=== PATIENT | female | born 1985 | race Two or more races ===

== ENCOUNTER 2024-08-16 07:34 | Emergency (ER) | payer MEDICAID, SELFPAY ==
[2024-08-16 07:35] VITALS: BMI 37.8
[2024-08-16 07:39] VITALS: BP 146/82; PULSE 78; RESP 17; TEMP 37.1; O2SAT 99
--- NOTE | 2024-08-16 07:43 | PD.EDABDPN ---
ED Abdominal Pain RME/HPI General Chief Complaint: Abdominal Pain Stated complaint: ABD/ LOWER BACK PAIN Time seen by provider: 08/16/24 07:37 Arrival date/time: 08/16/24 07:34 39-year-old female with no known medical history presents to the emergency room with a chief complaint of epigastric pain, bilateral flank pain, and dysuria x 5 days Source: patient Mode of arrival: ambulatory Limitations: no limitations Related Data Previous Rx's ?Medication ?Instructions ?Recorded cephalexin 500 mg capsule 500 mg PO BID #20 caps 12/19/18 prednisone 50 mg tablet 50 mg PO QDAY #5 tabs 11/09/21 albuterol sulfate 90 mcg/actuation 2 puff inhalation Q4H #6.7 grams 11/16/22 aerosol inhaler (Proventil HFA) loratadine 10 mg capsule 10 mg PO QDAY PRN allergy symptoms 11/16/22 #30 caps montelukast 10 mg tablet 10 mg PO QDAY #30 tabs 11/16/22 (Singulair) promethazine-DM 6.25 mg-15 mg/5 mL 5 ml PO Q6H #240 mL 11/16/22 oral syrup erythromycin 5 mg/gram (0.5 %) eye 0.5 inch ophthalmic (eye) QID #3.5 06/20/23 ointment grams levocetirizine 5 mg tablet (Xyzal) 2.5 mg (1/2 x 5 mg) PO BID #20 tabs 10/26/23 Allergies Allergy/AdvReac Type Severity Reaction Status Date / Time Charlton And Derivatives Allergy Severe Anaphylaxis Verified 06/19/23 21:46 Review of Systems Review of Systems Systems Reviewed: All systems reviewed, normal except as documented Constitutional Constitutional: Reports system reviewed and no additional complaints, except as documented, Denies fatigue, Denies fever(s), Denies headache(s) and Denies weakness Eyes Eyes: Reports system reviewed and no additional complaints, except as documented, Denies blurry vision and Denies change in vision ENT Ears, Nose, Mouth, and Throat: Reports system reviewed and no additional complaints, except as documented, Denies otalgia, Denies headache(s), Denies nasal congestion, Denies throat swelling and Denies vertigo Cardiovascular Cardiovascular: Reports system reviewed and no additional complaints, except as documented, Denies chest pain, Denies dyspnea and Denies dyspnea on exertion Respiratory Respiratory: Reports system reviewed and no additional complaints, except as documented, Denies chest congestion, Denies cough, Denies dyspnea, Denies dyspnea on exertion and Denies wheezing Gastrointestinal Gastrointestinal: Reports system reviewed and no additional complaints, except as documented, Reports abdominal pain, Reports cramping, Reports nausea and Reports vomiting Genitourinary Genitourinary: Reports system reviewed and no additional complaints, except as documented Musculoskeletal Musculoskeletal: Reports system reviewed and no additional complaints, except as documented and Denies back pain Integumentary/Breasts Skin/Breast: Reports system reviewed and no additional complaints, except as documented and Denies wounds Neurologic Neurologic: Reports system reviewed and no additional complaints, except as documented, Denies confusion, Denies headache(s), Denies lack of coordination, Denies vertigo and Denies weakness Psychiatric Psychiatric: Reports system reviewed and no additional complaints, except as documented, Denies anxiety, Denies confusion, Denies depression, Denies paranoia, Denies suicidal ideation and Denies tactile hallucinations Endocrine Endocrine: Reports system reviewed and no additional complaints, except as documented and Denies fatigue Hematologic/Lymphatic Hematologic/Lymphatic: Reports system reviewed and no additional complaints, except as documented and Denies lymphadenopathy Allergic/Immunologic Allergic/Immunologic: Reports system reviewed and no additional complaints, except as documented, Denies throat swelling, Denies urticaria and Denies wheezing Past Medical History Past Medical History CARDIAC: Negative Congestive Heart Failure RESPIRATORY: Negative Chronic Obstructive Pulmonary Disease (COPD) or Asthma GASTROINTESTINAL: Positive Gall Bladder Disease (REMOVED) GENITOURINARY: Negative Renal Disease ENDOCRINE: Negative Diabetes Mellitus Type 1 or Diabetes Mellitus Type 2 Social History SMOKING STATUS: Never smoker SUBSTANCE USE: does not use ED Exam General Limitations: Present no limitations General appearance: Present alert and in no apparent distress Head Head exam: Present atraumatic Eye Eye exam: Present normal appearance, PERRL and EOMI ENT ENT exam: Present normal exam, normal oropharynx and mucous membranes moist Neck Neck exam: Present normal inspection, full ROM and trachea midline Chest Chest inspection: Present normal inspection and symmetric chest wall rise Respiratory Respiratory exam: Present normal lung sounds bilaterally Cardiovascular Cardiovascular exam: Present regular rate, normal rhythm and normal heart sounds Abdominal Exam Abdominal exam: Present soft, tenderness, normal bowel sounds and tenderness at McBurney's Point Abdominal tenderness: Present epigastrium and moderate Extremities Exam Extremities exam: Present normal inspection and full ROM Back Exam Back exam: Present normal inspection and full ROM Neurological Exam Neurological exam: Present alert, oriented X3 and CN II-XII intact Psychiatric Psychiatric exam: Present normal affect and normal mood Skin Skin exam: Present warm, dry, intact and normal color Course Quality Measures none Orders Category Date Time Status CT abdomen pelvis wo con Stat Exams 08/16/24 07:44 Stop Req CBC Stat Lab 08/16/24 07:57 Completed CMP [Comprehensive Metabolic Panel] Stat Lab 08/16/24 07:57 Completed HCG Qualitative,Urine Stat Lab 08/16/24 08:03 Completed Lipase Stat Lab 08/16/24 07:57 Completed UA [Urinalysis] Stat Lab 08/16/24 08:03 Completed Urine Culture Stat Lab 08/16/24 08:03 Received Ondansetron Odt [Zofran Odt] Med 08/16/24 07:43 Discontinued 4 mg PO X1 ONE mg Hyd/Al Hyd/Betsy Susp [Maalox Susp] Med 08/16/24 07:43 Discontinued 30 ml PO X1 ONE Vital Signs Vital signs: Vital Signs Temperature 98.7 F 08/16/24 07:39 Pulse Rate 78 08/16/24 07:39 Respiratory Rate 17 08/16/24 07:39 Blood Pressure 146/82 H 08/16/24 07:39 Pulse Oximetry (%) 99 08/16/24 07:39 Oxygen Delivery Method Room Air 08/16/24 07:39 O2 saturation 99% within normal limits Abdominal Pain MDM MDM Narrative MDM Narrative:: 39-year-old female with no known medical history presents to the emergency room with a chief complaint of epigastric pain, bilateral flank pain, and dysuria x 5 days Patient is hemodynamically stable and in no apparent distress Physical examination shows 6 out of 10 epigastric abdominal pain with palpation. There is no right upper quadrant abdominal tenderness. Patient has some mild right lower quadrant abdominal tenderness but is no tenderness at McBurney's point. There is no rebound tenderness. CBC CMP showed no leukocytosis. The patient is afebrile and not vomiting. Fisher score was low for appendicitis. Patient's hCG test was positive. I reevaluated patient 1 hour later and there is no right lower quadrant abdominal tenderness. Patient was educated return if the pain and tenderness gets worse Patient was discharged and educated to follow-up with primary care provider in the next 24 to 48 hours and return to the emergency room for any evidence of worsening signs or symptoms Patient data External records reviewed:: [facility] previous records Clinical information provided by:: patient Social determinants that could affect healthcare access:: none Patient has the following chronic illnesses:: No chronic illness How is presenting disease/condition affected by chronic disease/condition?: no chronic disease Evaluation data The following diagnostics were reviewed and interpreted by me:: lab results and radiology exam(s) Lab and/or radiology exams considered but not ordered:: Labs and radiology exams considered and ordered Interpretation Summary: CT abdomen and pelvis-not completed because patient was Medications / Prescriptions Medications or Prescriptions considered but not ordered:: Medication given Medication administrations:: Medication Administration History Discontinued Medications Al Hydrox/Mg Hydrox/Simethicone (Mg Hyd/Al Hyd/Betsy (Maalox Reg) Susp 30 Ml Udc) 30 ml PO X1 ONE Stop: 08/16/24 07:44 Last Admin: 08/16/24 07:54 Dose: 30 ml Documented By: [facility] Ondansetron HCl (Ondansetron Odt 4 Mg Tabrap) 4 mg PO X1 ONE; Protocol Stop: 08/16/24 07:44 Last Admin: 08/16/24 07:54 Dose: 4 mg Documented By: [facility] Medication given Consultations Consultation(s) initiated? (list below): No Diagnosis Differential diagnosis abdominal pain: abdominal pain, acute appendicitis, calculus of kidney, constipation, gastroenteritis, small bowel obstruction and other Most likely diagnosis given after review of the tests above:: Gastritis, Admission Indicated Admission indicated?: not indicated Admission Request Was there a request for admission?: No Disposition Plan Disposition Plan: Discharge Discharge Attestation Discharge Attestation: The patient and all family members were given an opportunity to ask questions and understood the discharge instructions. Discharge instructions specifically effects, indications for sooner follow up or return to the emergency department, and the expected course of current diagnosis. Patient condition: Stable Discharge Plan Plan Patient Disposition: HOME (Self Care) Discharge Disposition comment: Stable Prescriptions/Referrals Prescriptions/Med Rec: No Action cephalexin 500 mg capsule 500 mg PO BID Qty: 20 0RF prednisone 50 mg tablet 50 mg PO QDAY Qty: 5 0RF montelukast [Singulair] 10 mg tablet 10 mg PO QDAY Qty: 30 0RF albuterol sulfate [Proventil HFA] 90 mcg/actuation HFA aerosol inhaler 2 puff inhalation Q4H Qty: 6.7 0RF loratadine 10 mg capsule 10 mg PO QDAY PRN (Reason: allergy symptoms) Qty: 30 0RF promethazine-DM 6.25-15 mg/5 mL syrup 5 ml PO Q6H Qty: 240 0RF erythromycin 5 mg/gram (0.5 %) ointment 0.5 inch ophthalmic (eye) QID Qty: 3.5 0RF levocetirizine [Xyzal] 5 mg tablet 2.5 mg PO BID Qty: 20 0RF Referrals: No Primary/Family,Physician [Primary Care Provider] - In 1 week Problem List Clinical Impression: , Gastritis Patient/Caregiver Discharge Instructions Education Materials: ED Gastritis (Adult) Additional Instructions: Consulte con louis m?dico de cabecera en las pr?ximas 24 a 48 horas. Louis prueba de embarazo echo positiva. Shanel an?lisis de susan y orina dieron negativo para cualquier hallazgo chung. ?Shanel s?ntomas son compatibles con gastritis? Ante cualquier evidencia de empeoramiento de los signos o s?ntomas, acuda a urgencias de inmediato. Print Language: Macanese Stand Alone Forms: Nancy Award Info., Patient Portal Info Letter PA/WIRE BOUND BOX MACHINE OPERATOR Supervising Physician PA/WIRE BOUND BOX MACHINE OPERATOR Supervising Physician: Dr. Schmidt
[2024-08-16] MEDS: ONDANSETRON ODT 4 MG TABRAP PO (07:54)
[2024-08-16] MEDS: MG HYD/AL HYD/SIME (Maalox Reg) SUSP 30 ML UDC PO (07:54)
[2024-08-16 08:11] LABS: Collection Type, Urine Clean Catch
[2024-08-16 08:28] LABS: Basophils % (Auto) 0 % (0-2.5); Eosinophils % (Auto) 0 % (0-10); Hematocrit 38.1 % (36.0-46.0); Hemoglobin 13.5 g/dL (12.0-16.0); Immature Granulocytes % (Auto) 0 % (0-0); Immature Granulocytes Auto 0.01 Thou/mm3 (0.00-0.00); Lymphocytes # (Auto) 2.2 Thou/mm3 (1.0-4.8); Lymphocytes % (Auto) 28 % (10-50); Mean Corpuscular HGB Conc 35.4 g/dl (31.0-37.0); Mean Corpuscular Volume 88 fL (80-100); Monocytes # (Auto) 0.4 Thou/mm3 (0.0-0.8); Monocytes % (Auto) 6 % (0-12); Neutrophils % (Auto) 65 % (37-80); Nucleated Red Blood Cell % 0 /100 WBC (0); Platelet Count 267 Thou/mm3 (140-440); RDW Standard Deviation 39.8 fL (36.4-46.3); Red Blood Count 4.35 Miln/mm3 (4.00-5.20); White Blood Count 7.6 Thou/mm3 (3.6-11.0)
[2024-08-16 08:32] LABS: Anion Gap 12 (7-16); BUN/Creatinine Ratio 13 Ratio (12-20); Blood Urea Nitrogen 9 mg/dL (9-23); Calcium 9.1 mg/dL (8.3-10.6); Carbon Dioxide 23.9 mMol/L (20.0-31.0); Chloride 105 mMol/L (98-107); Creatinine (Component) 0.7 mg/dL (0.6-1.3); Estimated Creatinine Clearance 123.9 mL/min (>60); Glucose 87 mg/dL (74-106); Osmolality,Calculated 278 (275-295); Potassium 3.8 mMol/L (3.4-5.1); Sodium 141 mMol/L (136-145); eGFR > 60 See Note
[2024-08-16 08:33] LABS: Alanine Aminotransferase 13 U/L (10-49); Albumin, Serum 4.4 gm/dL (3.5-5.0); Albumin/Globulin Ratio 1.8 (1.2-2.2); Alkaline Phosphatase 59 U/L (46-116); Bilirubin,Total 0.7 mg/dL (0.3-1.2); Calcium (Corrected) 9.1 mg/dL (8.5-10.1); Globulin 2.4 gm/dL (2.3-3.5); Lipase 31 U/L (12-53); Total Protein 6.8 gm/dL (5.7-8.2)
[2024-08-16 09:02] LABS: Bilirubin,Urine Negative (Negative); Blood,Urine Negative (Negative); Clarity,Urine Clear (Clear/Hazy); Color,Urine Yellow (Lt Yel-Yel); Glucose, Urine Negative (Negative); Ketones,Urine Negative (Negative); Leukocyte Esterase,Urine Negative (Negative); Nitrite,Urine Negative (Negative); PH,Urine 6.5 (5.0-7.0); Protein,Urine Negative (Neg - Trace); RBC,Urine 2 /hpf (0-3); Specific Gravity,Urine 1.024 (1.001-1.035); Squamous Epithelial Cell,Urine 4 /hpf (0-5); Urobilinogen,Urine Negative mg/dL (0.0-1.0); WBC,Urine 2 /hpf (0-5)
[2024-08-16 09:08] LABS: HCG Qualitative,Urine Positive
== END 2024-08-16 09:42 | disposition home or self-care (01) ==
PROVIDERS: Nurse Practitioner Family; Emergency Provider Family Medicine
DX: O99.619 Diseases of the digestive system complicating pregnancy, unspecified trimester (principal); K29.70 Gastritis, unspecified, without bleeding; Z3A.00 Weeks of gestation of pregnancy not specified
CPT/HCPCS: 36415; 80053; 81001; 81025; 83690; 85025; 87086; 99283; Q0162; A9270

== ENCOUNTER 2024-10-10 13:07 | Emergency (ER) | payer MEDICAID, SELFPAY ==
[2024-10-10 13:09] VITALS: BMI 36.6
[2024-10-10 13:19] VITALS: BP 143/82; PULSE 90; RESP 18; TEMP 36.9; O2SAT 98
--- NOTE | 2024-10-10 13:30 | XR_ITS ---
Examination: Complete OB ultrasound, less than 14 weeks, transabdominal Date and time of exam: October 10, 2024, 1341 hrs. Indications: Early by history with right flank pain today. Technique: Obstetrical ultrasound images less than 14 weeks performed via transabdominal imaging Findings: A normal shaped single intrauterine gestation is present in the uterus. CRL 8.7 cm corresponds to 14 weeks 4 days gestational age. Cardiac motion 138 BPM. Ultrasonographic survey of visible and placental structures unremarkable. Amniotic fluid volume appears appropriate for this estimated gestational age. Right ovary 4.6 cm arterial flow 13 mm follicular cyst Left ovary 2.4 cm arterial flow Impression: Viable intrauterine gestation 14 weeks 4 days.
--- NOTE | 2024-10-10 13:37 | EDNOTE_ITS ---
ED OB Contraction Preg RMI/HPI General Chief complaint: General Adult/Misc Complain Stated complaint: PAIN R) GROIN, PREG 13WKS Time Seen by Provider: 10/10/24 13:31 Source: patient Arrival date/time: 10/10/24 13:07 39-year-old female with no known medical history presents to the emergency room with a chief complaint of right groin pain x 1 day. Patient is currently 13 weeks . She is a . Patient denies any vaginal bleeding or dysuria. Mode of arrival: ambulatory Limitations: no limitations Related Data Previous Rx's ?Medication ?Instructions ?Recorded cephalexin 500 mg capsule 500 mg PO BID #20 caps 12/19 prednisone 50 mg tablet 50 mg PO QDAY #5 tabs albuterol sulfate 90 mcg/actuation 2 puff inhalation Q 4H #6.7 grams 11/16/22 aerosol inhaler (Proventil HFA) loratadine 10 mg capsule 10 mg PO QDAY PRN allergy sy mptoms 11/16/22 #30 caps montelukast 10 mg tablet 10 mg PO QDAY #30 tabs 11/16 (Singulair) promethazine-DM 6.25 mg-15 mg/5 mL 5 ml PO Q6H #240 mL 11/16/22 oral syrup erythromycin 5 mg/gram (0.5 %) eye 0.5 inch ophthalmic (eye) QID #3.5 06/20/23 ointment grams levocetirizine 5 mg tablet (Xyzal) 2.5 mg (1/2 x 5 mg) PO BID #20 tabs 10/26/23 Allergies Allergy/AdvReac Type Severity Reaction Status Date / Time No Known Allergies Allergy Verified 10/10/24 13:14 Review of Systems Review of Systems Systems Reviewed: All systems reviewed, normal except as documented Constitutional Constitutional: Reports system reviewed and no additional complaints, except as documented, Denies fatigue, Denies fever(s), Denies headache(s) and Denies weakness Eyes Eyes: Reports system reviewed and no additional complaints, except as documented, Denies blurry vision and Denies change in vision ENT Ears, Nose, Mouth, and Throat: Reports system reviewed and no additional complaints, except as documented, Denies otalgia, Denies headache(s), Denies nasal congestion, Denies throat swelling and Denies vertigo Cardiovascular Cardiovascular: Reports system reviewed and no additional complaints, except as documented, Denies chest pain, Denies dyspnea and Denies dyspnea on exertion Respiratory Respiratory: Reports system reviewed and no additional complaints, except as documented, Denies chest congestion, Denies cough, Denies dyspnea, Denies dyspnea on exertion and Denies wheezing Gastrointestinal Gastrointestinal: Reports system reviewed and no additional complaints, except as documented, Denies abdominal pain, Denies cramping, Denies nausea and Denies vomiting Genitourinary Genitourinary: Reports system reviewed and no additional complaints, except as documented Musculoskeletal Musculoskeletal: Reports system reviewed and no additional complaints, except as documented and Denies back pain Integumentary/Breasts Skin/Breast: Reports system reviewed and no additional complaints, except as documented and Denies wounds Neurologic Neurologic: Reports system reviewed and no additional complaints, except as documented, Denies confusion, Denies headache(s), Denies lack of coordination, Denies vertigo and Denies weakness Psychiatric Psychiatric: Reports system reviewed and no additional complaints, except as documented, Denies anxiety, Denies confusion, Denies depression, Denies paranoia, Denies suicidal ideation and Denies tactile hallucinations Endocrine Endocrine: Reports system reviewed and no additional complaints, except as documented and Denies fatigue Hematologic/Lymphatic Hematologic/Lymphatic: Reports system reviewed and no additional complaints, except as documented and Denies lymphadenopathy Allergic/Immunologic Allergic/Immunologic: Reports system reviewed and no additional complaints, except as documented, Denies throat swelling, Denies urticaria and Denies wheezing Past Medical History Past Medical History CARDIAC: Negative Congestive Heart Failure RESPIRATORY: Negative Chronic Obstructive Pulmonary Disease (COPD) or Asthma GASTROINTESTINAL: Positive Gall Bladder Disease (REMOVED) GENITOURINARY: Negative Renal Disease ENDOCRINE: Negative Diabetes Mellitus Type 1 or Diabetes Mellitus Type 2 Social History SMOKING STATUS: Never smoker SUBSTANCE USE: does not use ED Exam General Limitations: Present no limitations General appearance: Present alert and in no apparent distress Head Head exam: Present atraumatic Eye Eye exam: Present normal appearance, PERRL and EOMI ENT ENT exam: Present normal exam, normal oropharynx and mucous membranes moist Neck Neck exam: Present normal inspection, full ROM and trachea midline Chest Chest inspection: Present normal inspection and symmetric chest wall rise Respiratory Respiratory exam: Present normal lung sounds bilaterally Cardiovascular Cardiovascular exam: Present regular rate, normal rhythm and normal heart sounds Abdominal Exam Abdominal exam: Present soft, tenderness and normal bowel sounds Abdominal tenderness: Present RLQ and mild Extremities Exam Extremities exam: Present normal inspection and full ROM Back Exam Back exam: Present normal inspection and full ROM Neurological Exam Neurological exam: Present alert, oriented X3 and CN II-XII intact Psychiatric Psychiatric exam: Present normal affect and normal mood Skin Skin exam: Present warm, dry, intact and normal color Course Quality Measures none Orders Category Date Time Status US OB <= 14 weeks fetus Stat Exams 10/10/24 13:30 Completed ABO/RH Type Stat Lab 10/10/24 14:15 Results Beta HCG,Quantitative Stat Lab 10/10/24 14:15 Completed CBC Stat Lab 10/10/24 14:15 Completed CMP [Comprehensive Metabolic Panel] Stat Lab 10/10/24 14:15 Completed UA [Urinalysis] Stat Lab 10/10/24 13:55 Completed Vital Signs Vital signs: Vital Signs Temperature 98.4 F 10/10/24 13:19 Pulse Rate 90 10/10/24 13:19 Respiratory Rate 18 10/10/24 13:19 Blood Pressure 143/82 H 10/10/24 13:19 Pulse Oximetry (%) 98 10/10/24 13:19 Oxygen Delivery Method Room Air 10/10/24 13:19 O2 saturation 98% within normal limits OB/Uterine Contractions MDM Narrative MDM Narrative:: 39-year-old female with no known medical history presents to the emergency room with a chief complaint of right groin pain x 1 day. Patient is currently 13 weeks . She is a . Patient denies any vaginal bleeding or dysuria. Patient is hemodynamically stable and in no apparent distress Physical examination shows tenderness and pain to the patient's right lower quadrant groin area. Ultrasound OB was completed and shows a viable intrauterine gestation at 14 weeks and 4 days. heart tones are 138 bpm and hCG levels are 34,188. There is arterial flow to the left and right ovary. Patient was discharged and educated to follow-up with primary care provider in the next 24 to 48 hours and return to the emergency room for any evidence of worsening signs or symptoms Patient data External records reviewed:: [facility] [place] previous records Clinical information provided by:: patient Social determinants that could affect healthcare access:: none Patient has the following chronic illnesses:: No chronic illness How is presenting disease/condition affected by chronic disease/condition?: no chronic disease Evaluation data The following diagnostics were reviewed and interpreted by me:: lab results and radiology exam(s) Lab and/or radiology exams considered but not ordered:: Labs and radiology exams considered and ordered Interpretation Summary: OB ultrasound-Findings: A normal shaped single intrauterine gestation is present in the uterus. CRL 8.7 cm corresponds to 14 weeks 4 days gestational age. Cardiac motion 138 BPM. Ultrasonographic survey of visible and placental structures unremarkable. Amniotic fluid volume appears appropriate for this estimated gestational age. Right ovary 4.6 cm arterial flow 13 mm follicular cyst Left ovary 2.4 cm arterial flow Impression: Viable intrauterine gestation 14 weeks 4 days. Medications / Prescriptions Medications or Prescriptions considered but not ordered:: No medication given Medication administrations:: No medication given Consultations Consultation(s) initiated? (list below): No Diagnosis OB Contractions Differential Diagnosis: other (Ectopic /threatened /ovarian cyst/pelvic pain) Most likely diagnosis given after review of the tests above:: Pelvic pain Admission Indicated Admission indicated?: not indicated Explain why admission is indicated or not indicated:: N/A Admission Request Was there a request for admission?: No Disposition Plan Disposition Plan: Discharge Discharge Attestation Discharge Attestation: The patient and all family members were given an opportunity to ask questions and understood the discharge instructions. Discharge instructions specifically effects, indications for sooner follow up or return to the emergency department, and the expected course of current diagnosis. Patient condition: Stable Discharge Plan Plan Patient Disposition: HOME (Self Care) Discharge Disposition comment: Stable Prescriptions/Referrals Prescriptions/Med Rec: No Action cephalexin 500 mg capsule 500 mg PO BID Qty: 20 0RF prednisone 50 mg tablet 50 mg PO QDAY Qty: 5 0RF montelukast [Singulair] 10 mg tablet 10 mg PO QDAY Qty: 30 0RF albuterol sulfate [Proventil HFA] 90 mcg/actuation HFA aerosol inhaler 2 puff inhalation Q4H Qty: 6.7 0RF loratadine 10 mg capsule 10 mg PO QDAY PRN (Reason: allergy symptoms) Qty: 30 0RF promethazine-DM 6.25-15 mg/5 mL syrup 5 ml PO Q6H Qty: 240 0RF erythromycin 5 mg/gram (0.5 %) ointment 0.5 inch ophthalmic (eye) QID Qty: 3.5 0RF levocetirizine [Xyzal] 5 mg tablet 2.5 mg PO BID Qty: 20 0RF Referrals: Hao Buck MD [Primary Care Provider] - In 1 week Problem List Clinical Impression: Pelvic pain affecting , Follicular cyst of right ovary Patient/Caregiver Discharge Instructions Education Materials: ED Abdominal Pain, Early , ED Ovarian Cyst Additional Instructions: Por favor, acuda a jero yissel de seguimiento con louis m?dico de cabecera en las pr?ximas 24 a 48 horas. Actualmente, louis embarazo se encuentra en buen estado a las 14 semanas y 4 d?as. Shanel latidos fetales son de 138 lpm y shanel niveles de hCG son de 34.188. Se detect? un quiste folicular de 13 mm en el ovario derecho. Acuda a jero yissel de seguimiento con louis ginec?logo/obstetra para recibir tratamiento adicional. Si observa cualquier signo de empeoramiento de los signos o s?ntomas, acuda a urgencias de inmediato. Print Language: Romanian Stand Alone Forms: Nancy Award Info., Patient Portal Info Letter PA/PHONOGRAPH NEEDLE TIP MAKER Supervising Physician PA/PHONOGRAPH NEEDLE TIP MAKER Supervising Physician: Dr. Schmidt
[2024-10-10 14:32] LABS: Collection Type, Urine Clean Catch; RBC,Urine 0 /hpf (0-3)
[2024-10-10 14:39] LABS: Basophils # (Auto) 0.0 Thou/mm3 (0.0-0.2); Basophils % (Auto) 0 % (0-2.5); Eosinophils # (Auto) 0.0 Thou/mm3 (0.0-0.5); Eosinophils % (Auto) 1 % (0-10); Hematocrit 37.3 % (36.0-46.0); Hemoglobin 13.1 g/dL (12.0-16.0); Immature Granulocytes Auto 0.02 Thou/mm3 (0.00-0.00); Lymphocytes # (Auto) 2.2 Thou/mm3 (1.0-4.8); Lymphocytes % (Auto) 25 % (10-50); Mean Corpuscular HGB Conc 35.1 g/dl (31.0-37.0); Mean Corpuscular Hemoglobin 31.4 pg (25.0-35.0); Mean Corpuscular Volume 89 fL (80-100); Monocytes # (Auto) 0.5 Thou/mm3 (0.0-0.8); Monocytes % (Auto) 5 % (0-12); Neutrophils # (Auto) 6.2 Thou/mm3 (1.8-7.7); Neutrophils % (Auto) 70 % (37-80); Nucleated Red Blood Cell # 0.00 Thou/mm3 (0.00-0.00); Nucleated Red Blood Cell % 0 /100 WBC (0); Platelet Count 244 Thou/mm3 (140-440); RDW Standard Deviation 40.9 fL (36.4-46.3); Red Blood Count 4.17 Miln/mm3 (4.00-5.20); White Blood Count 8.9 Thou/mm3 (3.6-11.0)
[2024-10-10 14:47] LABS: Amorphous Crystals,Urine Present (Absent); Bacteria,Urine Rare; Bilirubin,Urine Negative (Negative); Blood,Urine Negative (Negative); Clarity,Urine Turbid (Clear/Hazy); Color,Urine Lt-Yellow (Lt Yel-Yel); Glucose, Urine Negative (Negative); Ketones,Urine Negative (Negative); Leukocyte Esterase,Urine Positive (Negative); Nitrite,Urine Negative (Negative); PH,Urine 7.0 (5.0-7.0); Protein,Urine Negative (Neg - Trace); Specific Gravity,Urine 1.016 (1.001-1.035); Squamous Epithelial Cell,Urine 7 /hpf (0-5); Urobilinogen,Urine Negative mg/dL (0.0-1.0); WBC,Urine 3 /hpf (0-5)
[2024-10-10 15:00] LABS: Alanine Aminotransferase 14 U/L (10-49); Albumin, Serum 4.0 gm/dL (3.5-5.0); Albumin/Globulin Ratio 1.7 (1.2-2.2); Alkaline Phosphatase 59 U/L (46-116); Anion Gap 10 (7-16); Aspartate Amino Transferase 14 U/L (0-34); BUN/Creatinine Ratio 10 Ratio (12-20); Bilirubin,Total 0.3 mg/dL (0.3-1.2); Blood Urea Nitrogen 8 mg/dL (9-23); Calcium 8.9 mg/dL (8.3-10.6); Calcium (Corrected) 8.9 mg/dL (8.5-10.1); Carbon Dioxide 23.9 mMol/L (20.0-31.0); Chloride 104 mMol/L (98-107); Creatinine (Component) 0.8 mg/dL (0.6-1.3); Estimated Creatinine Clearance 110.5 mL/min (>60); Globulin 2.4 gm/dL (2.3-3.5); Glucose 98 mg/dL (74-106); Osmolality,Calculated 273 (275-295); Potassium 3.4 mMol/L (3.4-5.1); Sodium 138 mMol/L (136-145); Total Protein 6.4 gm/dL (5.7-8.2); eGFR > 60 See Note
[2024-10-10 15:13] VITALS: BP 128/79; PULSE 79; RESP 18; TEMP 37; O2SAT 98
[2024-10-10 15:30] LABS: Beta HCG,Quantitative 34188 mIU/mL (<5.0)
== END 2024-10-10 16:18 | disposition home or self-care (01) ==
PROVIDERS: Nurse Practitioner Family; Emergency Provider Family Medicine; PCP Obstetrics & Gynecology
DX: O34.82 Maternal care for other abnormalities of pelvic organs, second trimester (principal); N83.01 Follicular cyst of right ovary; Z3A.14 14 weeks gestation of pregnancy
CPT/HCPCS: 36415; 76801; 80053; 81001; 84702; 85025; 86900; 86901; 99283

== ENCOUNTER 2025-01-25 13:32 | Outpatient (AMB) | payer MEDICAID, SELFPAY ==
--- NOTE | 2025-01-25 13:51 | OBCLNT_ITS ---
Vital Signs 01/25/25 14:09 Height 1.65 m Height Method Stated Weight 108.976 kg Weight Measurement Method Standing Scale BMI 39.9 BP 125/80 Blood Pressure Source Automatic Cuff Blood Pressure Location Right Upper Arm Position Sitting Respiration 18 Pulse 85 Pulse Source Monitor Temp 97.8 F Temp Source Temporal Artery Scan Pulse Oximetry (%) 98 Oxygen Delivery Method Room Air Allergies/Home Meds Allergies & Medications Allergies No Known Allergies Allergy (Verified 02/23/25 09:14) Medication Reconciliation aspirin 81 mg tablet 81 mg PO QDAY 01/25/25 [History Confirmed 02/23/25] labetalol 100 mg tablet 100 mg PO BID 01/25/25 [History Confirmed 02/23/25] blood sugar diagnostic (Blood Glucose Test strips) #100 ea 02/18/25 [Rx Confirmed 02/23/25] blood-glucose meter #1 ea 02/18/25 [Rx Confirmed 02/23/25] cetirizine 10 mg tablet 10 mg PO QDAY 30 days #30 tabs 02/18/25 [Rx Confirmed 02/23/25] lancets 21 gauge #100 ea 02/18/25 [Rx Confirmed 02/23/25] ursodiol 300 mg capsule 300 mg PO BID 30 days #60 caps 02/18/25 [Rx Confirmed 02/23/25] Intake Visit Data Collection New Patient or Established: Established Patient (seen at [facility] within 3 years) Reason for Visit:: OBI TRANSFER Seen by Clinical Staff ONLY (RN/MA): No Cafe Assistant Required: Yes Cafe Assistant's name/title: ELLIE VENEGAS MA Do You Feel Safe at Home: Yes Authorities Contacted: N/A PCP or OBGYN visit in last 3 months: No Hx Now: Yes Are you currently on any form of Control: No Last menstrual period: 07/12/24 Pain Present Currently: No Pain Scale Used: Ziegler-Griffith/Numerical Smoking Status Smoking Status: Never smoker Immunizations Flu Vaccine in the Last 12 Months: No Flu Vaccine Exclusion Criteria: No Exclusion Criteria Questionnaires Covid-19 Vaccine Questionnaire Has patient been vacinated for Covid-19 Have you been vacinated for Covid-19: No PHQ-9 PHQ-2 Over the last 2 weeks, how often have you been bothered by any of the following problems? 1. Little interest or pleasure in doing things: not at all 2. Feeling down, depressed, or hopeless: not at all Total score: 0 PHQ-9 3. Trouble falling or staying asleep, or sleeping too much: Not at all 4. Feeling tired or having little energy: Not at all 5. Poor appetite or overeating: Not at all 6. Feeling bad about yourself - or that you are a failure or have let yourself or your family down: Not at all 7. Trouble concentrating on things, such as reading the newspaper or watching television: Not at all 8. Moving or speaking so slowly that other people could have noticed? - Or the opposite - being so fidgety or restless that you have been moving around a lot more than usual: not at all 9. Thoughts that you would be better off or of hurting yourself in some way: Not at all Total score: 0 If you checked off any problems, how difficult have these problems made it for you to do your work, take care of things at home, or get along with other people?: not difficult at all Source: Developed by Drs. Darell Israel, Lori Gonzalez, Familia Subramanian and colleagues, with an educational berta from [employer]. 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 Buck with gestational diabetes and hypertension. - She has an estimated due date of 2024. - Patient reports that Dr. Buck told he r everything came out good regarding her recent care. - She is currently taking labetalol twic e daily and aspirin at night for blood pressure management. - Patient reports increased swelling in both legs that appears more pronounced recently. - She denies any specific symptoms or co ncerns at this visit. - All three previous pregnancies resulte d in normal vaginal deliveries without sections. - Patient is expecting a girl with this current . - Continue labetalol twice daily and aspirin at night for hypertension management - Plan for delivery at 37 weeks (first w [place] of March) due to hypertension, 2 weeks prior to March 28 due date - Initiate twice weekly monitoring at hospital to check baby's heartbeat and amniotic fluid levels - Lab order for pre-eclampsia screening due to increased swelling - Follow up appointment in 2 weeks - Continue dietary precautions for gesta tional diabetes (glucose 142, slightly elevated) - Plan to transfer care back to Dr. Felecia ambriz after delivery 02/11/25 -?-?-?-?-?-?-?-?-?-?-?-?- 33w 4d 110.393 kg 117/79 absent cephalic 34 14 5 active - She has gestational diabetes mellitus with mild elevation of one-hour glucose at 140. - Patient reports taking her blood press ure medication (labetalol) as prescribed. - She experiences itching, which she att ributes to the weather conditions. - Patient denies eating anything that co uld cause an allergic reaction. - She reports occasional nosebleeds. - Patient denies contractions at this vi sit. - She has a history of three prior vagin al deliveries with no sections. - Continue labet alol for gestational hypertension - Order laboratory tests - Follow up in one week to review lab re sults - Delivery planned at 37 weeks - For nosebleeds, apply pressure and meek id putting fingers inside nose 02/18/25 -?-?-?-?-?-?-?-?-?-?-?-?- 34w 4d 110.847 kg 125/84 absent cephalic 36 15 5 active - She reports taking her blood pressure medication as prescribed. - Regarding blood sugar monitoring, she checks her glucose levels after eating but does not have a glucometer at home. - She reports avoiding eating at night d ue to fear of elevated blood sugar levels. - She experiences itching symptoms. - She reports vaginal itching with associated discharge and foul sm ell. - Prescribe medicine for liver function issues related to blood pressure - Provide glucometer and glucose monitor ing log sheets - Monitor blood glucose 4 times daily: f asting and 1 hour after each meal - Recommend small nighttime snack (fruit or crackers) to prevent hypoglycemia - Treat vaginal itching and discharge - [facility] - Follow up in one week Menstrual History Menstrual reliability: approximate (month known) Flow: heavy Menstrual regularity: regular Monthly: Yes Age at menarche: 11 On control pills at conception: No OB History : 4 Para: 3 # of Living Children: 3 Delivery History 1st : Child's name: BRADLY WILLIAMSON date: 03/15/02 sex: male Delivery type: vaginal History of depression before or after : No 2nd : Child's name: GEORGI WILLIAMSON date: 12/08/05 sex: female Delivery type: vaginal History of depression before or after : No 3rd : Child's name: ELAYNE WILLIAMSON date: 07/27/11 sex: male Delivery type: vaginal History of depression before or after : No Infection History & Risk Evaluation History of STDs: none Patient or partner has history of Genital Herpes: No Genetic Screening & History Genetic Screening/Teratology Counseling - Includes patient, baby's father, or anyone in either family with: 1. Patient's age 35 years or older as of estimated date of delivery: Yes 2. Thalassemia (Icelandic, Slovenian, Mediterranean, or Background); MCV less than 80: No 3. Neural Tube Defect (Meningomyelocele, Spina Bifida, or Anencephaly): No 4. Congenital Heart Defect: No 5. Down Syndrome: No 6. Franco-Sachs (Ashkenazi Gnosticist, Cajun, [place]): No 7. Abdias Disease (Ashkenazi Gnosticist): No 8. Familial Dysautonomia (Ashkenazi Gnosticist): No 9. Sickle Cell Disease or Trait (): No 10. Hemophilia or other blood disorders: No 11. Muscular Dystrophy: No 12. Cystic Fibrosis: No 13. Chenango's Chorea: No 14. Mental Retardation/Autism: No 15. Other inherited genetic or chromosomal disorder: No 16. Maternal Metabolic Disorder (EG,TYPE 1 Diabetes, PKU): No 17. Patient or baby's father had a child with defects not listed above: No 18. Recurrent loss or a stillbirth: No 19. Medications (including supplements, vitamins, herbs or otc drugs)/illicit/recreational drugs/alcohol since last menstrual period: No 20. Any other: No Infection History Other (see comments) Source: [employer] [place] [employer] Office Procedures O[facility] Clinic LOC & Office Proc's Nursing/Assessment Patient Status: Established Patient OB Clinic Nursing Assessment: Medication Reconciliation, Update PMH in EMR and Vital Signs OB Clinic Coordination of Care: Complex Care and Chronic Disease 1-5, Education Complex Pt/Fam, Consent,records obtained, informed consent, Lab and Imaging orders, Results/Orders obtained and Staff clarify orders Special Needs: Heart tones Established Patient Charge Established Patient Point Assignment: 140 Established Patient Point Charge: EP Level 4 (120-155) Assessment & Plan Diagnosis / Problem List (1) Supervision of high risk , unspecified, third trimester: Status: Acute (2) Chronic hypertension affecting : Status: Acute Plan Problem List - Gestational diabetes mellitus - Gestational hypertension - Advanced maternal age - Multiparity - Edema Assessment This is a 4 para 3 patient with advanced maternal age presenting for transfer of care at approximately 32-33 weeks gestation with an estimated due date of March 28, 2024. The patient has gestational diabetes with a glucose test result of 142 mg/dL, which is mildly elevated. She has hypertension in currently managed with labetalol twice daily and aspirin at night. Physical examination reveals bilateral lower extremity swelling that appears to be worsening. The patient has a history of three prior normal vaginal deliveries without sections. heart rate is normal at 143 beats per minute. Plan - Continue labetalol twice daily and aspirin at night for hypertension management - Plan for delivery at 37 weeks (first week of March) due to hypertension, 2 weeks prior to March 28 due date - Initiate twice weekly monitoring at hospital to check baby's heartbeat and amniotic fluid levels - Lab order for pre-eclampsia screening due to increased swelling - Follow up appointment in 2 weeks - Continue dietary precautions for gestational diabetes (glucose 142, slightly elevated) - Plan to transfer care back to Dr. Buck after delivery 1. Progress Reviewed gestational age, growth, and heart rate. Planned frequent visits (every 2 weeks until 36 weeks, then weekly). 2. Instructed patient to monitor movements and report decreases immediately. 3. Testing Counseled on routine third-trimester labs per guidelines. Discussed potential need for ultrasound or monitoring based on risk factors. 4. Preeclampsia Precaution Educated on preeclampsia signs: severe headache, vision changes, right upper quadrant pain, sudden swelling. Advised urgent reporting of symptoms and discussed blood pressure monitoring if high risk. 5. Labor Precautions Reviewed labor signs: regular contractions, pelvic pressure, back pain, bleeding, or fluid leakage. Instructed to seek immediate care for these symptoms. 6. Lifestyle and Delivery Preparation Reinforced vitamins, nutrition, and safe activity. Discussed plan, pain management, and . Advised on labor preparation (e.g., hospital bag) and expectations. 7. Psychosocial Support Assessed emotional well-being and offered resources for mental health or parenting support.
[2025-01-25 14:09] VITALS: BP 125/80; PULSE 85; RESP 18; TEMP 36.6; O2SAT 98; BMI 39.9
== END 2025-01-25 14:32 | disposition home or self-care (01) ==
LOC: HODSOBC 13:32
PROVIDERS: PCP Obstetrics & Gynecology; Referring Provider Obstetrics & Gynecology; Supervising Provider Obstetrics & Gynecology; Visit Provider Obstetrics & Gynecology
DX: O09.893 Supervision of other high risk pregnancies, third trimester (principal); O13.3 Gestational [pregnancy-induced] hypertension without significant proteinuria, third trimester; O24.410 Gestational diabetes mellitus in pregnancy, diet controlled; O09.523 Supervision of elderly multigravida, third trimester; Z3A.31 31 weeks gestation of pregnancy
CPT/HCPCS: 99214; G0463

== ENCOUNTER 2025-02-11 10:48 | Outpatient (AMB) | payer MEDICAID, SELFPAY ==
[2025-02-11 11:00] VITALS: BP 117/79; PULSE 77; RESP 18; TEMP 36.4; O2SAT 98; BMI 40.5
--- NOTE | 2025-02-11 11:00 | OBCLNT_ITS ---
Vital Signs 02/11/25 11:00 Height 1.65 m Height Method Stated Weight 110.393 kg Weight Measurement Method Standing Scale BMI 40.5 BP 117/79 Blood Pressure Source Automatic Cuff Blood Pressure Location Right Upper Arm Position Sitting Respiration 18 Pulse 77 Pulse Source Monitor Temp 97.5 F Temp Source Temporal Artery Scan Pulse Oximetry (%) 98 Oxygen Delivery Method Room Air Allergies/Home Meds Allergies & Medications Allergies No Known Allergies Allergy (Verified 02/11/25 11:01) Medication Reconciliation aspirin 81 mg tablet 81 mg PO QDAY 01/25/25 [History Confirmed 02/11/25] labetalol 100 mg tablet 100 mg PO BID 01/25/25 [History Confirmed 02/11/25] Immunizations Immunizations Flu Vaccine in the Last 12 Months: No Flu Vaccine Exclusion Criteria: No Exclusion Criteria Care OB Visit Log OB Flowsheet Initial Weight: Not Recorded Date -?-?-?-?-?-?-?-?-?-?-?-?- EGA Weight BP Alb Glu CTX Pres Fundal ht FHR Mov Dilation Station Effacement Hx Notes Visit Note 02/11/25 -?-?-?-?-?-?-?-?-?-?-?-?- 33w 4d 110.393 kg 117/79 absent cephalic 34 14 5 active - She has gesta tional diabetes mellitus with mild elevation of one-hour glucose at 140. - Patient reports taking her blood press ure medication (labetalol) as prescribed. - She experiences itching, which she att ributes to the weather conditions. - Patient denies eating anything that co uld cause an allergic reaction. - She reports occasional nosebleeds. - Patient denies contractions at this vi sit. - She has a history of three prior vagin al deliveries with no sections. - Continue labet alol for gestational hypertension - Order laboratory tests - Follow up in one week to review lab re sults - Delivery planned at 37 weeks - For nosebleeds, apply pressure and meek id putting fingers inside nose TINY Calculator Estimated Delivery Date Method Current WG Current Estimate 03/28/25 Manual 33w 6d Other Estimates 03/28/25 LMP (Certain) 33w 6d Office Procedures [facility] LOC & Office Proc's Nursing/Assessment Patient Status: Established Patient OB Clinic Nursing Assessment: Medication Reconciliation, Update PMH in EMR and Vital Signs OB Clinic Coordination of Care: Complex Care and Chronic Disease 1-5, Education Complex Pt/Fam, Consent,records obtained, informed consent, Lab and Imaging orders, Results/Orders obtained and Staff clarify orders Special Needs: Heart tones Established Patient Charge Established Patient Point Assignment: 140 Established Patient Point Charge: EP Level 4 (120-155) Assessment & Plan Diagnosis / Problem List (1) Chronic hypertension: Status: Acute (2) Gestational diabetes: Status: Acute (3) Supervision of high risk , unspecified, third trimester: Status: Acute Plan Problem List - Gestational hypertension - Gestational diabetes mellitus - Edema - Pruritus - Epistaxis Assessment 33-year-old patient at 33 weeks and 4 days gestation with gestational hypertension and worsening edema, currently managed on labetalol with delivery planned at 37 weeks. Patient has gestational diabetes mellitus with mild elevation of one-hour glucose at 140. History of 3 prior vaginal deliveries with no cesareans. Patient reports itching, likely related to weather conditions, and experiences nosebleeds. heart rate is 147 bpm, which is within normal limits. Plan - Continue labetalol for gestational hypertension - Order laboratory tests - Follow up in one week to review lab results - Delivery planned at 37 weeks - For nosebleeds, apply pressure and avoid putting fingers inside nose 1. Progress Reviewed gestational age (33 weeks 4 days), growth, and heart rate (147 bpm, normal). Planned frequent visits (weekly visits scheduled). 2. Instructed patient to monitor movements and report decreases immediately. 3. Testing Counseled on routine third-trimester labs per guidelines (labs ordered for next visit). Discussed potential need for ultrasound or monitoring based on risk factors. 4. Preeclampsia Precaution Educated on preeclampsia signs: severe headache, vision changes, right upper quadrant pain, sudden swelling. Advised urgent reporting of symptoms and discussed blood pressure monitoring (patient currently on labetalol for gestational hypertension with worsening edema). 5. Labor Precautions Reviewed labor signs: regular contractions, pelvic pressure, back pain, bleeding, or fluid leakage. Instructed to seek immediate care for these symptoms. 6. Lifestyle and Delivery Preparation Reinforced vitamins, nutrition, and safe activity. Discussed plan (delivery planned at 37 weeks), pain management, and . Advised on labor preparation (e.g., hospital bag) and expectations. 7. Psychosocial Support Assessed emotional well-being and offered resources for mental health or parenting support.
== END 2025-02-11 11:37 | disposition home or self-care (01) ==
LOC: HODSOBC 10:48
PROVIDERS: Supervising Provider Obstetrics & Gynecology; Visit Provider Obstetrics & Gynecology
DX: O09.893 Supervision of other high risk pregnancies, third trimester (principal); O24.419 Gestational diabetes mellitus in pregnancy, unspecified control; O09.523 Supervision of elderly multigravida, third trimester; O13.3 Gestational [pregnancy-induced] hypertension without significant proteinuria, third trimester; O26.893 Other specified pregnancy related conditions, third trimester; L29.9 Pruritus, unspecified; Z3A.33 33 weeks gestation of pregnancy
CPT/HCPCS: 99214; G0463

== ENCOUNTER 2025-02-18 09:35 | Outpatient (AMB) | payer MEDICAID, SELFPAY ==
[2025-02-18 09:44] VITALS: BP 125/84; PULSE 85; RESP 16; TEMP 36.6; O2SAT 98; BMI 40.7
--- NOTE | 2025-02-18 09:44 | OBCLNT_ITS ---
Vital Signs 02/18/25 09:44 Height 1.65 m Height Method Stated Weight 110.847 kg Weight Measurement Method Standing Scale BMI 40.7 BP 125/84 Blood Pressure Source Automatic Cuff Blood Pressure Location Left Upper Arm Position Sitting Respiration 16 Pulse 85 Pulse Source Monitor Temp 98 F Temp Source Oral Pulse Oximetry (%) 98 Oxygen Delivery Method Room Air Allergies/Home Meds Allergies & Medications Allergies No Known Allergies Allergy (Verified 02/18/25 09:53) Medication Reconciliation aspirin 81 mg tablet 81 mg PO QDAY 01/25/25 [History Confirmed 02/18/25] labetalol 100 mg tablet 100 mg PO BID 01/25/25 [History Confirmed 02/18/25] blood sugar diagnostic (Blood Glucose Test strips) #100 ea 02/18/25 [Rx] blood-glucose meter #1 ea 02/18/25 [Rx] cetirizine 10 mg tablet 10 mg PO QDAY 30 days #30 tabs 02/18/25 [Rx] clotrimazole 1 % vaginal cream (Gyne-Lotrimin 7) 1 appful vaginal QHS 7 days #45 grams 02/18/25 [Rx] lancets 21 gauge #100 ea 02/18/25 [Rx] metronidazole 0.75 % (37.5 mg/5 gram) vaginal gel 1 appful vaginal QDAY 5 days #70 grams 02/18/25 [Rx] ursodiol 300 mg capsule 300 mg PO BID 30 days #60 caps 02/18/25 [Rx] Immunizations Immunizations Flu Vaccine in the Last 12 Months: No Flu Vaccine Exclusion Criteria: Refused by Patient Care OB Visit Log OB Flowsheet Initial Weight: Not Recorded Date -?-?-?-?-?-?-?-?-?-?-?-?- EGA Weight BP Alb Glu CTX Pres Fundal ht FHR Mov Dilation Station Effacement Hx Notes Visit Note 02/11/25 -?-?-?-?-?-?-?-?-?-?-?-?- 33w 4d 110.393 kg 117/79 absent cephalic 34 14 5 active - She has gestational diabetes mellitus with mild elevation of one-hour glucose at 140. - Patient reports taking her blood press ure medication (labetalol) as prescribed. - She experiences itching, which she att ributes to the weather conditions. - Patient denies eating anything that co uld cause an allergic reaction. - She reports occasional nosebleeds. - Patient denies contractions at this vi sit. - She has a history of three prior vagin al deliveries with no sections. - Continue labet alol for gestational hypertension - Order laboratory tests - Follow up in one week to review lab re sults - Delivery planned at 37 weeks - For nosebleeds, apply pressure and meek id putting fingers inside nose 02/18/25 -?-?-?-?-?-?-?-?-?-?-?-?- 34w 4d 110.847 kg 125/84 absent cephalic 36 15 5 active - She reports taking her blood pressure medication as prescribed. - Regarding blood sugar monitoring, she checks her glucose levels after eating but does not have a glucometer at home. - She reports avoiding eating at night d ue to fear of elevated blood sugar levels. - She experiences itching symptoms. - She reports vaginal itching with associated discharge and foul sm ell. - Prescribe medicine for liver function issues related to blood pressure - Provide glucometer and glucose monitor ing log sheets - Monitor blood glucose 4 times daily: f asting and 1 hour after each meal - Recommend small nighttime snack (fruit or crackers) to prevent hypoglycemia - Treat vaginal itching and discharge - Send all prescriptions to patient's armacy - Follow up in one week TINY Calculator Estimated Delivery Date Method Current WG Current Estimate 03/28/25 Manual 34w 4d Other Estimates 03/28/25 LMP (Certain) 34w 4d Office Procedures [facility] LOC & Office Proc's Nursing/Assessment Patient Status: Established Patient OB Clinic Nursing Assessment: Medication Reconciliation, Update PMH in EMR and Vital Signs OB Clinic Coordination of Care: AMA, Complex Care and Chronic Disease 1-5, Consent,records obtained, informed consent, Education Simp Pt/Fam, 1 Ins Authorization, Lab and Imaging orders, Results/Orders obtained and Staff clarify orders Special Needs: Heart tones Established Patient Charge Established Patient Point Assignment: 170 Established Patient Point Charge: EP Level 5 (160-above) Assessment & Plan Diagnosis / Problem List (1) Pruritus: Status: Acute (2) Chronic hypertension: Status: Acute (3) Gestational diabetes: Status: Acute (4) Supervision of high risk , unspecified, third trimester: Status: Acute (5) Acute vaginitis: Status: Acute Plan Problem List - Chronic hypertension - Gestational diabetes mellitus - Hepatic dysfunction - Pruritus - Vaginal infection with discharge Assessment 34-week 4-day 4 para 3 patient with chronic hypertension and gestational diabetes mellitus. Laboratory results reveal hypoglycemia with glucose level of 67 mg/dL. Blood pressure management appears to be affecting liver function, though kidney function remains normal. Patient reports pruritus, with bile acid level of 7 (normal). Additional concerns include vaginal itching with associated discharge and foul odor. heart rate is 150 bpm, which is within normal limits. Plan - Prescribe medicine for liver function issues related to blood pressure - Provide glucometer and glucose monitoring log sheets - Monitor blood glucose 4 times daily: fasting and 1 hour after each meal - Recommend small nighttime snack (fruit or crackers) to prevent hypoglycemia - Treat vaginal itching and discharge - Send all prescriptions to patient's pharmacy - Follow up in one week 1. Progress Reviewed gestational age (34 weeks 4 days), growth, and heart rate (150 bpm, normal). Planned frequent visits (weekly follow-up scheduled). 2. Instructed patient to monitor movements and report decreases immediately. 3. Testing Counseled on routine third-trimester labs per guidelines (recent labs reviewed showing glucose 67, liver function affected, kidney function normal, bile acid 7). Discussed potential need for ultrasound or monitoring based on risk factors. 4. Preeclampsia Precaution Educated on preeclampsia signs: severe headache, vision changes, right upper quadrant pain, sudden swelling. Advised urgent reporting of symptoms and discussed blood pressure monitoring (patient has chronic hypertension, taking blood pressure medication). 5. Labor Precautions Reviewed labor signs: regular contractions, pelvic pressure, back pain, bleeding, or fluid leakage. Instructed to seek immediate care for these symptoms. 6. Lifestyle and Delivery Preparation Reinforced vitamins, nutrition (instructed to eat small nighttime snack to prevent hypoglycemia), and safe activity. Discussed plan, pain management, and . Advised on labor preparation (e.g., hospital bag) and expectations. 7. Psychosocial Support Assessed emotional well-being and offered resources for mental health or parenting support.
== END 2025-02-18 10:49 | disposition home or self-care (01) ==
LOC: HODSOBC 09:35
PROVIDERS: Supervising Provider Obstetrics & Gynecology; Visit Provider Obstetrics & Gynecology
DX: O09.893 Supervision of other high risk pregnancies, third trimester (principal); O26.893 Other specified pregnancy related conditions, third trimester; L29.9 Pruritus, unspecified; O10.913 Unspecified pre-existing hypertension complicating pregnancy, third trimester; O24.419 Gestational diabetes mellitus in pregnancy, unspecified control; O09.523 Supervision of elderly multigravida, third trimester; O23.593 Infection of other part of genital tract in pregnancy, third trimester; N76.0 Acute vaginitis; Z3A.34 34 weeks gestation of pregnancy; O26.613 Liver and biliary tract disorders in pregnancy, third trimester; K76.89 Other specified diseases of liver; Z79.899 Other long term (current) drug therapy
CPT/HCPCS: 99215; G0463

== ENCOUNTER 2025-02-23 08:58 | Outpatient (AMB) | payer MEDICAID, SELFPAY ==
[2025-02-23 09:13] VITALS: BP 126/85; PULSE 99; RESP 18; TEMP 36.6; O2SAT 98; BMI 41.0
--- NOTE | 2025-02-23 09:13 | OBCLNT_ITS ---
Vital Signs 02/23/25 09:13 Height 1.65 m Height Method Stated Weight 111.64 kg Weight Measurement Method Standing Scale BMI 41.0 BP 126/85 H Blood Pressure Source Automatic Cuff Blood Pressure Location Left Upper Arm Position Sitting Respiration 18 Pulse 99 Pulse Source Monitor Temp 97.8 F Temp Source Oral Pulse Oximetry (%) 98 Oxygen Delivery Method Room Air Allergies/Home Meds Allergies & Medications Allergies No Known Allergies Allergy (Verified 03/04/25 09:33) Medication Reconciliation aspirin 81 mg tablet 81 mg PO QDAY 01/25/25 [History Confirmed 03/04/25] labetalol 100 mg tablet 100 mg PO BID 01/25/25 [History Confirmed 03/04/25] blood sugar diagnostic (Blood Glucose Test strips) #100 ea 02/18/25 [Rx Confirmed 03/04/25] blood-glucose meter #1 ea 02/18/25 [Rx Confirmed 03/04/25] cetirizine 10 mg tablet 10 mg PO QDAY 30 days #30 tabs 02/18/25 [Rx Confirmed 03/04/25] lancets 21 gauge #100 ea 02/18/25 [Rx Confirmed 03/04/25] ursodiol 300 mg capsule 300 mg PO BID 30 days #60 caps 02/18/25 [Rx Confirmed 03/04/25] Immunizations Immunizations Flu Vaccine in the Last 12 Months: Yes Flu Vaccine Exclusion Criteria: Already Received Care OB Visit Log OB Flowsheet Initial Weight: Not Recorded Date -?-?-?-?-?-?-?-?-?-?-?-?- EGA Weight BP Alb Glu CTX Pres Fundal ht FHR Mov Dilation Station Effacement Hx Notes Visit Note 01/25/25 -?-?-?-?-?-?-?-?-?-?-?-?- 31w 1d 108.976 kg 125/80 absent cephalic 32 15 5 active - Elda Costello is a 4 para 3 patient with advanced maternal age presenting for transfer of care from Dr. Buck with gestational diabetes and hypertension. - She has an estimated due date of 2024. - Patient reports that Dr. Buck told he r everything came out good regarding her recent care. - She is currently taking labetalol twic e daily and aspirin at night for blood pressure management. - Patient reports increased swelling in both legs that appears more pronounced recently. - She denies any specific symptoms or co ncerns at this visit. - All three previous pregnancies resulte d in normal vaginal deliveries without sections. - Patient is expecting a girl with this current . - Continue labetalol twice daily and aspirin at night for hypertension management - Plan for delivery at 37 weeks (first w [place] march) due to hypertension, 2 weeks prior to March 28 due date - Initiate twice weekly monitoring at hospital to check baby's heartbeat and amniotic fluid levels - Lab order for pre-eclampsia screening due to increased swelling - Follow up appointment in 2 weeks - Continue dietary precautions for gesta tional diabetes (glucose 142, slightly elevated) - Plan to transfer care back to Dr. Felecia ambriz after delivery 02/11/25 -?-?-?-?-?-?-?-?-?-?-?-?- 33w 4d 110.393 kg 117/79 absent cephalic 34 14 5 active - She has gest ational diabetes mellitus with mild elevation of one-hour glucose at 140. - Patient reports taking her blood press ure medication (labetalol) as prescribed. - She experiences itching, which she att ributes to the weather conditions. - Patient denies eating anything that co uld cause an allergic reaction. - She reports occasional nosebleeds. - Patient denies contractions at this vi sit. - She has a history of three prior vagin al deliveries with no sections. - Continue labet alol for gestational hypertension - Order laboratory tests - Follow up in one week to review lab re sults - Delivery planned at 37 weeks - For nosebleeds, apply pressure and meek id putting fingers inside nose 02/18/25 -?-?-?-?-?-?-?-?-?-?-?-?- 34w 4d 110.847 kg 125/84 absent cephalic 36 15 5 active - She reports taking her blood pressure medication as prescribed. - Regarding blood sugar monitoring, she checks her glucose levels after eating but does not have a glucometer at home. - She reports avoiding eating at night d ue to fear of elevated blood sugar levels. - She experiences itching symptoms. - She reports vaginal itching with associated discharge and foul sm ell. - Prescribe medicine for liver function issues related to blood pressure - Provide glucometer and glucose monitor ing log sheets - Monitor blood glucose 4 times daily: f asting and 1 hour after each meal - Recommend small nighttime snack (fruit or crackers) to prevent hypoglycemia - Treat vaginal itching and discharge - Send all prescriptions to [facility] - Follow up in one week 02/23/25 -?-?-?-?-?-?-?-?-?-?-?-?- 35w 2d 111.64 kg 126/85 3.2 g/dL (3.9-4.9) L 76 mg/dL (70-9 9) absent cephalic 36 145 active - She reports compliance with labetalol for blood pressure management and aspirin therapy. - Blood glucose monitoring shows good co ntrol with diet management: - Fasting blood glucose: 74-83 mg/dL - One-hour post breakfast: 98-149 mg/d L - One-hour post lunch: 105-137 mg/dL - One-hour post dinner: 110-143 mg/dL - She had previously complained of hypog lycemia at her last appointment. - Patient reports new onset of significa nt leg swelling since November. - She denies headaches, stomach pain, le aking of fluid, or contractions. - Reports baby remains active. - Induction of labor scheduled for March 07 at 37 weeks gestation due to chronic hypertension - Continue labetalol for blood pressure management - Continue ASA (aspirin) - Lab order for kidney function assessme nt - GBS culture to be performed - Discontinue blood glucose monitoring a s numbers are adequate - Follow-up appointments scheduled for n ext week and the week after 03/04/25 -?-?-?-?-?-?-?-?-?-?-?-?- 36w 4d 113.568 kg 134/87 absent cephalic 38 16 1 active - She has chronic hypertension and is currently taking blood pressure medication twice daily. - Patient reports significant swelling i n her feet that is persistent and does not improve with sleep. - The swelling is associated with pain and is always present. - She denies any other acute complaints or symptoms. - Induction of labor scheduled for March 09 at 37 weeks 1 day gestation - Continue current blood pressure medica tion (labetalol) twice daily for chronic hypertension - GBS status pending TINY Calculator Estimated Delivery Date Method Current WG Current Estimate 03/28/25 Manual 37w 1d Other Estimates 03/28/25 LMP (Certain) 37w 1d Notes Visit Date: 03/04/25 Last Updated by: Boone Friedman MD - Date: 02/24/2025 - Hemoglobin: 12.6 g/dL - CMP: Glucose 76 mg/dL, Sodium 135 mEq/L, Potassium 4.1 mEq/L - Alkaline phosphatase: 144 U/L (slightly elevated) - AST: 24 U/L - ALT: 31 U/L - Hemoglobin A1c: 5.5% - Uric acid: 6.9 mg/dL (elevated) - LDH: 207 U/L - Urine spot protein-creatinine ratio: 0.2 Office Procedures [facility] Clinic LOC & Office Proc's Nursing/Assessment Patient Status: Established Patient OB Clinic Nursing Assessment: Medication Reconciliation, Update PMH in EMR and Vital Signs OB Clinic Coordination of Care: AMA, Complex Care and Chronic Disease 1-5, Consent,records obtained, informed consent, Education Simp Pt/Fam, 1 Ins Authorization, Lab and Imaging orders, Results/Orders obtained and Staff clarify orders Special Needs: Heart tones Miscellaneous Interventions: Culture Specimen Collection Established Patient Charge Established Patient Point Assignment: 185 Established Patient Point Charge: EP Level 5 (160-above) Assessment & Plan Diagnosis / Problem List (1) Supervision of high risk , unspecified, third trimester: Status: Acute (2) Chronic hypertension affecting : Status: Acute Plan Problem List - Chronic hypertension in - Gestational diabetes mellitus, diet controlled - Elevated liver enzymes - Edema of lower extremities Assessment at 35 weeks and 2 days gestation with chronic hypertension managed on labetalol and ASA, presenting with elevated liver enzymes and new onset significant lower extremity edema since November. Patient has diet-controlled gestational diabetes mellitus with recent hypoglycemic episodes, though current glucose monitoring shows fasting levels 74-83 mg/dL, one-hour post-breakfast 98- 149 mg/dL, one-hour post-lunch 105-137 mg/dL, and one-hour post-dinner 110-143 mg/dL. heart rate is 137 bpm with normal activity reported by patient. GBS status is pending. Plan - Induction of labor scheduled for March 07 at 37 weeks gestation due to chronic hypertension - Continue labetalol for blood pressure management - Continue ASA (aspirin) - Lab order for kidney function assessment - GBS culture to be performed - Discontinue blood glucose monitoring as numbers are adequate - Follow-up appointments scheduled for next week and the week after 1. Progress Reviewed gestational age, growth, and heart rate. Planned frequent visits (every 2 weeks until 36 weeks, then weekly). 2. Instructed patient to monitor movements and reported decreases immediately. 3. Testing Counseled on routine third-trimester labs per guidelines. Discussed potential need for ultrasound or monitoring based on risk factors. 4. Preeclampsia Precaution Educated on preeclampsia signs: severe headache, vision changes, right upper quadrant pain, sudden swelling. Advised urgent reporting of symptoms and discussed blood pressure monitoring if high risk. 5. Labor Precautions Reviewed labor signs: regular contractions, pelvic pressure, back pain, bleeding, or fluid leakage. Instructed to seek immediate care for these symptoms. 6. Lifestyle and Delivery Preparation Reinforced vitamins, nutrition, and safe activity. Discussed plan, pain management, and . Advised on labor preparation (e.g., hospital bag) and expectations. 7. Psychosocial Support Assessed emotional well-being and offered resources for mental health or parenting support.
== END 2025-02-23 09:33 | disposition home or self-care (01) ==
LOC: HODSOBC 08:58
PROVIDERS: Supervising Provider Obstetrics & Gynecology; Visit Provider Obstetrics & Gynecology
DX: O09.893 Supervision of other high risk pregnancies, third trimester (principal); O10.913 Unspecified pre-existing hypertension complicating pregnancy, third trimester; O24.410 Gestational diabetes mellitus in pregnancy, diet controlled; O09.523 Supervision of elderly multigravida, third trimester; Z3A.35 35 weeks gestation of pregnancy; Z79.899 Other long term (current) drug therapy
CPT/HCPCS: 99215; G0463

== ENCOUNTER 2025-03-04 09:26 | Outpatient (AMB) | payer MEDICAID, SELFPAY ==
[2025-03-04 09:32] VITALS: BP 134/87; PULSE 98; RESP 18; TEMP 36.2; O2SAT 97; BMI 41.7
--- NOTE | 2025-03-04 09:32 | OBCLNT_ITS ---
Vital Signs 03/04/25 09:32 Height 1.65 m Height Method Stated Weight 113.568 kg Weight Measurement Method Standing Scale BMI 41.7 BP 134/87 H Blood Pressure Source Automatic Cuff Blood Pressure Location Left Upper Arm Position Sitting Respiration 18 Pulse 98 Pulse Source Monitor Temp 97.2 F Temp Source Oral Pulse Oximetry (%) 97 Oxygen Delivery Method Room Air Allergies/Home Meds Allergies & Medications Allergies No Known Allergies Allergy (Verified 03/04/25 09:33) Medication Reconciliation aspirin 81 mg tablet 81 mg PO QDAY 01/25/25 [History Confirmed 03/04/25] labetalol 100 mg tablet 100 mg PO BID 01/25/25 [History Confirmed 03/04/25] blood sugar diagnostic (Blood Glucose Test strips) #100 ea 02/18/25 [Rx Confirmed 03/04/25] blood-glucose meter #1 ea 02/18/25 [Rx Confirmed 03/04/25] cetirizine 10 mg tablet 10 mg PO QDAY 30 days #30 tabs 02/18/25 [Rx Confirmed 03/04/25] lancets 21 gauge #100 ea 02/18/25 [Rx Confirmed 03/04/25] ursodiol 300 mg capsule 300 mg PO BID 30 days #60 caps 02/18/25 [Rx Confirmed 03/04/25] Immunizations Immunizations Flu Vaccine in the Last 12 Months: No Flu Vaccine Exclusion Criteria: No Exclusion Criteria Care OB Visit Log OB Flowsheet Initial Weight: Not Recorded Date -?-?-?-?-?-?-?-?-?-?-?-?- EGA Weight BP Alb Glu CTX Pres Fundal ht FHR Mov Dilation Station Effacement Hx Notes Visit Note 01/25/25 -?-?-?-?-?-?-?-?-?-?-?-?- 31w 1d 108.976 kg 125/80 absent cephalic 32 15 5 active - Elda Costello is a 4 para 3 patient with advanced maternal age presenting for transfer of care from Dr. Buck with gestational diabetes and hypertension. - She has an estimated due date of 2024. - Patient reports that Dr. Buck told he r everything came out good regarding her recent care. - She is currently taking labetalol twic e daily and aspirin at night for blood pressure management. - Patient reports increased swelling in both legs that appears more pronounced recently. - She denies any specific symptoms or co ncerns at this visit. - All three previous pregnancies resulte d in normal vaginal deliveries without sections. - Patient is expecting a girl with this current . - Continue labetalol twice daily and aspirin at night for hypertension management - Plan for delivery at 37 weeks (first w [place] march) due to hypertension, 2 weeks prior to March 28 due date - Initiate twice weekly monitoring at hospital to check baby's heartbeat and amniotic fluid levels - Lab order for pre-eclampsia screening due to increased swelling - Follow up appointment in 2 weeks - Continue dietary precautions for gesta tional diabetes (glucose 142, slightly elevated) - Plan to transfer care back to Dr. Felecia ambriz after delivery 02/11/25 -?-?-?-?-?-?-?-?-?-?-?-?- 33w 4d 110.393 kg 117/79 absent cephalic 34 14 5 active - She has gestational diabetes mellitus with mild elevation of one-hour glucose at 140. - Patient reports taking her blood press ure medication (labetalol) as prescribed. - She experiences itching, which she att ributes to the weather conditions. - Patient denies eating anything that co uld cause an allergic reaction. - She reports occasional nosebleeds. - Patient denies contractions at this vi sit. - She has a history of three prior vagin al deliveries with no sections. - Continue labet alol for gestational hypertension - Order laboratory tests - Follow up in one week to review lab re sults - Delivery planned at 37 weeks - For nosebleeds, apply pressure and meek id putting fingers inside nose 02/18/25 -?-?-?-?-?-?-?-?-?-?-?-?- 34w 4d 110.847 kg 125/84 absent cephalic 36 15 5 active - She reports taking her blood pressure medication as prescribed. - Regarding blood sugar monitoring, she checks her glucose levels after eating but does not have a glucometer at home. - She reports avoiding eating at night d ue to fear of elevated blood sugar levels. - She experiences itching symptoms. - She reports vaginal itching with associated discharge and foul sm ell. - Prescribe medicine for liver function issues related to blood pressure - Provide glucometer and glucose monitor ing log sheets - Monitor blood glucose 4 times daily: f asting and 1 hour after each meal - Recommend small nighttime snack (fruit or crackers) to prevent hypoglycemia - Treat vaginal itching and discharge - Send all prescriptions [facility]'s [facility] - Follow up in one week 03/04/25 -?-?-?-?-?-?-?-?-?-?-?-?- 36w 4d 113.568 kg 134/87 absent cephalic 38 16 1 active - She has chronic h ypertension and is currently taking blood pressure medication twice daily. - Patient reports significant swelling i n her feet that is persistent and does not improve with sleep. - The swelling is associated with pain and is always present. - She denies any other acute complaints or symptoms. - Induction of labor scheduled for March 09 at 37 weeks 1 day gestation - Continue current blood pressure medica tion (labetalol) twice daily for chronic hypertension - GBS status pending TINY Calculator Estimated Delivery Date Method Current WG Current Estimate 03/28/25 Manual 36w 4d Other Estimates 03/28/25 LMP (Certain) 36w 4d Notes Visit Date: 03/04/25 Last Updated by: Boone Friedman MD - Date: 02/24/2025 - Hemoglobin: 12.6 g/dL - CMP: Glucose 76 mg/dL, Sodium 135 mEq/L, Potassium 4.1 mEq/L - Alkaline phosphatase: 144 U/L (slightly elevated) - AST: 24 U/L - ALT: 31 U/L - Hemoglobin A1c: 5.5% - Uric acid: 6.9 mg/dL (elevated) - LDH: 207 U/L - Urine spot protein-creatinine ratio: 0.2 Office Procedures [facility] Clinic LOC & Office Proc's Nursing/Assessment Patient Status: Established Patient OB Clinic Nursing Assessment: Medication Reconciliation, Update PMH in EMR and Vital Signs OB Clinic Coordination of Care: Complex Care and Chronic Disease 1-5, Consent,records obtained, informed consent, Education Simp Pt/Fam, Lab and Imaging orders, Results/Orders obtained and Staff clarify orders Special Needs: Heart tones Established Patient Charge Established Patient Point Assignment: 135 Established Patient Point Charge: EP Level 4 (120-155) Assessment & Plan Diagnosis / Problem List (1) Chronic hypertension affecting : Status: Acute (2) Supervision of high risk , unspecified, third trimester: Status: Acute Plan Problem List - Chronic hypertension - at 36 weeks and 4 days gestation - Elevated uric acid - Pedal edema Assessment 36-week 4-day 4 para 3 with chronic hypertension on labetalol presenting for routine visit. Blood pressure elevated at 134/87 with significant pedal edema that is persistent and causing discomfort. Laboratory studies show hemoglobin 12.6, normal basic metabolic panel with glucose 76, sodium 135, potassium 4.1, and A1c 5.5. Liver function tests reveal slightly elevated alkaline phosphatase at 144 with normal AST 24 and ALT 31. Uric acid elevated at 6.9. Urine protein-creatinine ratio normal at 0.2, ruling out preeclampsia. heart rate normal at 161 bpm. GBS status pending. Plan - Induction of labor scheduled for March 09 at 37 weeks 1 day gestation - Continue current blood pressure medication (labetalol) twice daily for chronic hypertension - GBS status pending 1. Progress Reviewed gestational age (36 weeks 4 days), growth, and heart rate (161 bpm, normal). Planned frequent visits (every 2 weeks until 36 weeks, then weekly). 2. Instructed patient to monitor movements and report decreases immediately. 3. Testing Counseled on routine third-trimester labs per guidelines. Discussed potential need for ultrasound or monitoring based on risk factors. 4. Preeclampsia Precaution Educated on preeclampsia signs: severe headache, vision changes, right upper quadrant pain, sudden swelling. Advised urgent reporting of symptoms and discussed blood pressure monitoring if high risk. 5. Labor Precautions Reviewed labor signs: regular contractions, pelvic pressure, back pain, bleeding, or fluid leakage. Instructed to seek immediate care for these symptoms. 6. Lifestyle and Delivery Preparation Reinforced vitamins, nutrition, and safe activity. Discussed plan, pain management, and . Advised on labor preparation (e.g., hospital bag) and expectations. 7. Psychosocial Support Assessed emotional well-being and offered resources for mental health or parenting support.
== END 2025-03-04 10:11 | disposition home or self-care (01) ==
PROVIDERS: Supervising Provider Obstetrics & Gynecology; Visit Provider Obstetrics & Gynecology
DX: O09.893 Supervision of other high risk pregnancies, third trimester (principal); O10.913 Unspecified pre-existing hypertension complicating pregnancy, third trimester; Z3A.36 36 weeks gestation of pregnancy; Z79.899 Other long term (current) drug therapy
CPT/HCPCS: 99214; G0463